=== PATIENT | female | born 1975 | race Caucasian/White ===

== ENCOUNTER → 2017-03-25 | Outpatient (CLI) | payer BC, OTHER ==
[~2017-03-25] MED LIST: ACHYD1T PO; ALBU8.5H2 IH; ASCO500T20 PO; ASPI-586 PO; ATOR40TA PO; CA C1TAB26 PO; CHOL3000 PO; DCS100C PO; DEXL60CA5 PO; DOCU100T7 PO; FAMO-119 PO; IBP800T PO; LEVO5TAB28 PO; LORA10TA7 PO; LRT10T PO; MEGA RED PO; METF-380 PO; MOME17SP9 NS; MONT10TA21 PO; MTF500T PO; ONDA4TAB8 SL; PHEN-452 PO; PNT40TEC PO; PREN1TAB14 PO; PRM25T PO; SCR1T1 PO; SPRINTEC PO; SUCR1ORA5 PO; TOPI50TA37 PO; TRAM-42 PO; VITA150T PO
--- NOTE | 2017-03-25 20:32 | Diagnostic Imaging Report ---
PROCEDURE: US Thyroid. TECHNIQUE: Multiple real-time grayscale images were obtained of the thyroid in various projections. INDICATION: Followup thyroid nodule. COMPARISON: Thyroid ultrasound from 10/06/2013 is reviewed. FINDINGS: The right thyroid lobe is 4.4 x 2.0 x 1.8 cm. The left lobe is 4.8 x 1.7 x 1.7 cm. There are multiple subcentimeter thyroid nodules, the largest is 0.6 x 0.7 x 0.4 cm in the lower aspect of the left lobe with no internal vascularity, in favor of a cystic nodule or a complicated colloid cyst. The findings are similar to 2014 exam. IMPRESSION: Multiple subcentimeter nonspecific thyroid nodules. Dictated by: Dictated on workstation # [id number]
== END ==
LOC: RAD 15:30
PROVIDERS: ATTEND Internal Medicine Endocrinology, Diabetes & Metabolism
DX: E04.2 Nontoxic multinodular goiter (principal)
CPT/HCPCS: 76536

== ENCOUNTER 2017-04-26 17:27 | Day surgery (SDC) | payer BC ==
[~2017-04-26] VITALS: Ht 172.7 cm; Wt 108.0 kg
--- OUTSIDE RECORDS SUMMARY | 2017-04-26 17:35 | XMS REPORT | Continuity of Care Document ---
Author Author [facility] Address Unknown Phone Unavailable Allergies Active Description Code Type Severity Reaction Onset Reported/Identified Relationship to Patient Clinical Status Yes Penicillins [id number] Drug Allergy Moderate RASH 11/10/2007 Yes aspirin [id number] Drug Allergy Mild NAUSEA 11/10/2007 Yes meperidine [id number] Drug Allergy Mild MAKES PT LIGHTH 11/10/2007 Yes morphine [id number] Drug Allergy Mild MAKES PT LIGHT- 11/10/2007 Yes pineapple [id number] Drug Allergy Unknown N/A 01/24/2015 Yes Sulfa (Sulfonamide Antibiotics) [id number] Drug Allergy Unknown RASH, THROAT SW 01/24/2015 Medications There is no data. Problems Date Dx Coded Attending Type Code Diagnosis Diagnosed By 01/21/2011 Ot 530.3 ESOPHAGEAL STRICTURE 01/21/2011 Ot 530.81 ESOPHAGEAL REFLUX 09/28/2011 Ot 614.6 FEM PELVIC PERITON ADH-POST-OP/INF 09/28/2011 Ot 625.9 FEM GENITAL SYMPTOMS NOS 09/28/2011 Ot 626.8 MENSTRUAL DISORDER NEC 12/10/2013 DAVID WATSON MD Ot 455.0 INT HEMORRHOID W/O COMPL 12/10/2013 DAVID WATSON MD Ot 455.3 EXT HEMORRHOID W/O COMPL 12/10/2013 DAVID WATSON MD Ot 530.11 REFLUX ESOPHAGITIS 12/10/2013 DAVID WATSON MD Ot 530.3 ESOPHAGEAL STRICTURE 12/10/2013 DAVID WATSON MD Ot 535.50 UNSP GASTRITIS GASTRODUODENITIS W/O ME 04/25/2014 Ot V76.12 04/25/2014 Ot 298.9 04/25/2014 Ot 379.91 04/25/2014 Ot 780.93 04/25/2014 Ot 787.20 04/25/2014 Ot 723.1 04/25/2014 Ot 787.20 04/25/2014 Ot 285.9 04/25/2014 Ot 625.9 04/25/2014 Ot 626.8 04/25/2014 Ot V72.63 04/25/2014 Ot V74.8 04/25/2014 Ot 719.45 04/25/2014 Ot 719.41 04/25/2014 Ot 719.45 04/25/2014 Ot 723.1 04/25/2014 Ot 719.41 04/25/2014 Ot 719.45 04/25/2014 Ot 721.3 04/25/2014 Ot 722.51 04/25/2014 Ot 723.1 04/25/2014 Ot 726.10 04/25/2014 Ot 726.12 04/25/2014 Ot 729.5 04/25/2014 Ot 782.3 04/25/2014 Ot 272.4 04/25/2014 Ot 397.0 04/25/2014 Ot 401.9 04/25/2014 Ot 424.0 04/25/2014 Ot 786.09 04/25/2014 Ot 786.50 04/25/2014 Ot 272.4 04/25/2014 Ot 401.9 04/25/2014 Ot 424.0 04/25/2014 Ot 786.09 04/25/2014 Ot 786.50 04/25/2014 Ot 241.0 04/25/2014 JUSTIN WELLS Ot 272.4 04/25/2014 JUSTIN WELLS Ot 278.00 04/25/2014 JUSTIN WELLS Ot 401.9 04/25/2014 JUSTIN WELLS Ot 785.1 04/25/2014 DEVON JOSUE Ot 241.1 04/25/2014 WALTER DIAZ, DAVID Ot V72.84 05/13/2014 RAYMON DIAZ, KIRSTIN Sawyer Ot V76.12 10/27/2014 Ot V76.12 10/27/2014 Ot 298.9 10/27/2014 Ot 379.91 10/27/2014 Ot 780.93 10/27/2014 Ot 787.20 10/27/2014 Ot 723.1 10/27/2014 Ot 787.20 10/27/2014 Ot 285.9 10/27/2014 Ot 625.9 10/27/2014 Ot 626.8 10/27/2014 Ot V72.63 10/27/2014 Ot V74.8 10/27/2014 Ot 719.45 10/27/2014 Ot 719.41 10/27/2014 Ot 719.45 10/27/2014 Ot 723.1 10/27/2014 Ot 719.41 10/27/2014 Ot 719.45 10/27/2014 Ot 721.3 10/27/2014 Ot 722.51 10/27/2014 Ot 723.1 10/27/2014 Ot 726.10 10/27/2014 Ot 726.12 10/27/2014 Ot 729.5 10/27/2014 Ot 782.3 10/27/2014 Ot 272.4 10/27/2014 Ot 397.0 10/27/2014 Ot 401.9 10/27/2014 Ot 424.0 10/27/2014 Ot 786.09 10/27/2014 Ot 786.50 10/27/2014 Ot 272.4 10/27/2014 Ot 401.9 10/27/2014 Ot 424.0 10/27/2014 Ot 786.09 10/27/2014 Ot 786.50 10/27/2014 Ot 241.0 10/27/2014 JUSTIN WELLS Ot 272.4 10/27/2014 JUSTIN WELLS Ot 278.00 10/27/2014 JUSTIN WELLS Ot 401.9 10/27/2014 JUSTIN WELLS Ot 785.1 10/27/2014 DEVON JOSUE Ot 241.1 10/27/2014 WALTER DIAZ, DAVID Ot V72.84 10/27/2014 RAYMON DIAZ, KIRSTIN Sawyer Ot V76.12 11/17/2014 CHAPINCITO DIAZ, KRISTEN Garber Ot 241.0 12/20/2014 CHAPINCITO DIAZ, KRISTEN Garber Ot 241.0 01/24/2015 Ot V76.12 01/24/2015 Ot 298.9 01/24/2015 Ot 379.91 01/24/2015 Ot 780.93 01/24/2015 Ot 787.20 01/24/2015 Ot 723.1 01/24/2015 Ot 787.20 01/24/2015 Ot 285.9 01/24/2015 Ot 625.9 01/24/2015 Ot 626.8 01/24/2015 Ot V72.63 01/24/2015 Ot V74.8 01/24/2015 Ot 719.45 01/24/2015 Ot 719.41 01/24/2015 Ot 719.45 01/24/2015 Ot 723.1 01/24/2015 Ot 719.41 01/24/2015 Ot 719.45 01/24/2015 Ot 721.3 01/24/2015 Ot 722.51 01/24/2015 Ot 723.1 01/24/2015 Ot 726.10 01/24/2015 Ot 726.12 01/24/2015 Ot 729.5 01/24/2015 Ot 782.3 01/24/2015 Ot 272.4 01/24/2015 Ot 397.0 01/24/2015 Ot 401.9 01/24/2015 Ot 424.0 01/24/2015 Ot 786.09 01/24/2015 Ot 786.50 01/24/2015 Ot 272.4 01/24/2015 Ot 401.9 01/24/2015 Ot 424.0 01/24/2015 Ot 786.09 01/24/2015 Ot 786.50 01/24/2015 Ot 241.0 01/24/2015 JUSTIN WELLS Ot 272.4 01/24/2015 JUSTIN WELLS Ot 278.00 01/24/2015 JUSTIN WELLS Ot 401.9 01/24/2015 JUSTIN WELLS Ot 785.1 01/24/2015 DEVON JOSUE Ot 241.1 01/24/2015 WALTER DIAZ, DAVID Ot V72.84 01/24/2015 RAYMON DIAZ, KIRSTIN Sawyer Ot V76.12 01/24/2015 CHAPINCITO DIAZ, KRISTEN Garber Ot 241.0 01/24/2015 TRACY CONWAY APRN Ot 787.20 DYSPHAGIA, UNSPECIFIED 01/24/2015 TRACY CONWAY CARAMEL COLORING OPERATOR Ot 787.3 FLATUL/ERUCTAT/GAS PAIN 01/24/2015 Ot V76.12 01/24/2015 Ot 298.9 01/24/2015 Ot 379.91 01/24/2015 Ot 780.93 01/24/2015 Ot 787.20 01/24/2015 Ot 723.1 01/24/2015 Ot 787.20 01/24/2015 Ot 285.9 01/24/2015 Ot 625.9 01/24/2015 Ot 626.8 01/24/2015 Ot V72.63 01/24/2015 Ot V74.8 01/24/2015 Ot 719.45 01/24/2015 Ot 719.41 01/24/2015 Ot 719.45 01/24/2015 Ot 723.1 01/24/2015 Ot 719.41 01/24/2015 Ot 719.45 01/24/2015 Ot 721.3 01/24/2015 Ot 722.51 01/24/2015 Ot 723.1 01/24/2015 Ot 726.10 01/24/2015 Ot 726.12 01/24/2015 Ot 729.5 01/24/2015 Ot 782.3 01/24/2015 Ot 272.4 01/24/2015 Ot 397.0 01/24/2015 Ot 401.9 01/24/2015 Ot 424.0 01/24/2015 Ot 786.09 01/24/2015 Ot 786.50 01/24/2015 Ot 272.4 01/24/2015 Ot 401.9 01/24/2015 Ot 424.0 01/24/2015 Ot 786.09 01/24/2015 Ot 786.50 01/24/2015 Ot 241.0 01/24/2015 JUSTIN WELLS Ot 272.4 01/24/2015 JUSTIN WELLS Ot 278.00 01/24/2015 JUSTIN WELLS Ot 401.9 01/24/2015 JUSTIN WELLS Ot 785.1 01/24/2015 DEVON JOSUE Ot 241.1 01/24/2015 WALTER DIAZ, DAVID Ot V72.84 01/24/2015 RAYMON DIAZ, KIRSTIN Sawyer Ot V76.12 01/24/2015 CHAPINCITO DIAZ, KRISTEN Garber Ot 241.0 01/26/2015 Ot V76.12 01/26/2015 Ot 298.9 01/26/2015 Ot 379.91 01/26/2015 Ot 780.93 01/26/2015 Ot 787.20 01/26/2015 Ot 723.1 01/26/2015 Ot 787.20 01/26/2015 Ot 285.9 01/26/2015 Ot 625.9 01/26/2015 Ot 626.8 01/26/2015 Ot V72.63 01/26/2015 Ot V74.8 01/26/2015 Ot 719.45 01/26/2015 Ot 719.41 01/26/2015 Ot 719.45 01/26/2015 Ot 723.1 01/26/2015 Ot 719.41 01/26/2015 Ot 719.45 01/26/2015 Ot 721.3 01/26/2015 Ot 722.51 01/26/2015 Ot 723.1 01/26/2015 Ot 726.10 01/26/2015 Ot 726.12 01/26/2015 Ot 729.5 01/26/2015 Ot 782.3 01/26/2015 Ot 272.4 01/26/2015 Ot 397.0 01/26/2015 Ot 401.9 01/26/2015 Ot 424.0 01/26/2015 Ot 786.09 01/26/2015 Ot 786.50 01/26/2015 Ot 272.4 01/26/2015 Ot 401.9 01/26/2015 Ot 424.0 01/26/2015 Ot 786.09 01/26/2015 Ot 786.50 01/26/2015 Ot 241.0 01/26/2015 JUSTIN WELLS Ot 272.4 01/26/2015 JUSTIN WELLS Ot 278.00 01/26/2015 JUSTIN WELLS Ot 401.9 01/26/2015 JUSTIN WELLS Ot 785.1 01/26/2015 DEVON JOSUE Ot 241.1 01/26/2015 WALTER DIAZ, DAVID Ot V72.84 01/26/2015 RAYMON DIAZ, KIRSTIN Sawyer Ot V76.12 01/26/2015 CHAPINCITO DIAZ, KRISTEN Garber Ot 241.0 01/27/2015 Ot V76.12 01/27/2015 Ot 298.9 01/27/2015 Ot 379.91 01/27/2015 Ot 780.93 01/27/2015 Ot 787.20 01/27/2015 Ot 723.1 01/27/2015 Ot 787.20 01/27/2015 Ot 285.9 01/27/2015 Ot 625.9 01/27/2015 Ot 626.8 01/27/2015 Ot V72.63 01/27/2015 Ot V74.8 01/27/2015 Ot 719.45 01/27/2015 Ot 719.41 01/27/2015 Ot 719.45 01/27/2015 Ot 723.1 01/27/2015 Ot 719.41 01/27/2015 Ot 719.45 01/27/2015 Ot 721.3 01/27/2015 Ot 722.51 01/27/2015 Ot 723.1 01/27/2015 Ot 726.10 01/27/2015 Ot 726.12 01/27/2015 Ot 729.5 01/27/2015 Ot 782.3 01/27/2015 Ot 272.4 01/27/2015 Ot 397.0 01/27/2015 Ot 401.9 01/27/2015 Ot 424.0 01/27/2015 Ot 786.09 01/27/2015 Ot 786.50 01/27/2015 Ot 272.4 01/27/2015 Ot 401.9 01/27/2015 Ot 424.0 01/27/2015 Ot 786.09 01/27/2015 Ot 786.50 01/27/2015 Ot 241.0 01/27/2015 JUSTIN WELLS Ot 272.4 01/27/2015 JUSTIN WELLS Ot 278.00 01/27/2015 JUSTIN WELLS Ot 401.9 01/27/2015 JUSTIN WELLS Ot 785.1 01/27/2015 DEVON JOSUE Ot 241.1 01/27/2015 WALTER DIAZ, DAVID Ot V72.84 01/27/2015 RAYMON DIAZ, KRISTIN Sawyer Ot V76.12 01/27/2015 CHAPINCITO DIAZ, KRISTEN Garber Ot 241.0 01/27/2015 CHAPINCITO DIAZ, KRISTEN Garber Ot 241.0 03/16/2015 CHAPINCITO DIAZ, KRISTEN Garber Ot 241.0 03/16/2015 CHAPINCITO DIAZ, KRISTEN Garber Ot E04.1 03/28/2015 CHAPINCITO DIAZ, KRISTEN L Ot 241.0 03/28/2015 CHAPINCITO DIAZ, KRISTEN L Ot E04.1 05/10/2015 RAYMON DIAZ, KIRSTIN Sawyer Ot Z12.31 05/24/2015 RAYMON DIAZ, KIRSTIN Sawyer Ot R92.8 06/15/2015 RAYMON DIAZ, KIRSTIN Sawyer Ot R92.8 08/09/2015 RAYMON DIAZ, KIRSTIN Sawyer Ot R92.8 04/14/2016 Ot 298.9 PSYCHOSIS NOS 04/14/2016 Ot 379.91 PAIN IN OR AROUND EYE 04/14/2016 Ot 780.93 MEMORY LOSS 04/14/2016 Ot 787.20 DYSPHAGIA, UNSPECIFIED 04/14/2016 Ot 723.1 CERVICALGIA 04/14/2016 Ot 787.20 DYSPHAGIA, UNSPECIFIED 04/14/2016 Ot 285.9 ANEMIA NOS 04/14/2016 Ot 625.9 FEM GENITAL SYMPTOMS NOS 04/14/2016 Ot 626.8 MENSTRUAL DISORDER NEC 04/14/2016 Ot V72.63 PRE- PROCEDURAL LABORATORY EXAMINATION 04/14/2016 Ot V74.8 SCREEN- BACTERIAL DIS NEC 04/14/2016 Ot 719.45 JOINT PAIN- PELVIS 04/14/2016 Ot 719.41 JOINT PAIN- SHLDER 04/14/2016 Ot 719.45 JOINT PAIN- PELVIS 04/14/2016 Ot 723.1 CERVICALGIA 04/14/2016 Ot 719.41 JOINT PAIN- SHLDER 04/14/2016 Ot 719.45 JOINT PAIN- PELVIS 04/14/2016 Ot 721.3 LUMBOSACRAL SPONDYLOSIS 04/14/2016 Ot 722.51 THORACIC DISC DEGEN 04/14/2016 Ot 723.1 CERVICALGIA 04/14/2016 Ot 726.10 BURSAE TENDONS DIS SHLDER NOS 04/14/2016 Ot 726.12 BICIPITAL TENOSYNOVITIS 04/14/2016 Ot 729.5 PAIN IN LIMB 04/14/2016 Ot 782.3 EDEMA 04/14/2016 Ot 272.4 HYPERLIPIDEMIA NEC/NOS 04/14/2016 Ot 397.0 TRICUSPID VALVE DISEASE 04/14/2016 Ot 401.9 HYPERTENSION NOS 04/14/2016 Ot 424.0 MITRAL VALVE DISORDER 04/14/2016 Ot 786.09 RESPIRATORY ABNORM NEC 04/14/2016 Ot 786.50 CHEST PAIN NOS 04/14/2016 Ot 272.4 HYPERLIPIDEMIA NEC/NOS 04/14/2016 Ot 401.9 HYPERTENSION NOS 04/14/2016 Ot 424.0 MITRAL VALVE DISORDER 04/14/2016 Ot 786.09 RESPIRATORY ABNORM NEC 04/14/2016 Ot 786.50 CHEST PAIN NOS 04/14/2016 Ot 241.0 NONTOX UNINODULAR GOITER 04/14/2016 JUSTIN WELLS K Ot 272.4 HYPERLIPIDEMIA NEC/NOS 04/14/2016 DANA WEAVER JUSTIN K Ot 278.00 OBESITY, NOS 04/14/2016 DANA WEAVER JUSTIN K Ot 401.9 HYPERTENSION NOS 04/14/2016 DANA WEAVER JUSTIN K Ot 785.1 PALPITATIONS 04/14/2016 DEVON JOSUE Ot 241.1 NONTOX MULTINODUL GOITER 04/14/2016 WALTER DIAZ, DAVID Ot V72.84 EXAM PRE-OPERATIVE NOS 04/14/2016 KIRSTIN ENNIS MD Ot V76.12 OTH SCREEN MAMMO-MALIGN NEOPLASM OF STEVE 04/14/2016 CHAPINCITO DAIZ, KRISTEN Garber Ot 241.0 NONTOX UNINODULAR GOITER 04/14/2016 KRISTEN BECKHAM MD Ot E04.1 NONTOXIC SINGLE THYROID NODULE 04/14/2016 KIRSTIN ENNIS MD Ot Z12.31 ENCNTR SCREEN MAMMOGRAM FOR MALIGNANT NE 04/14/2016 KIRSTIN ENNIS MD Ot R92.8 OTH ABN AND INCONCLUSIVE FINDINGS ON DX 04/15/2016 WEI DIAZ, PITO Lai Ot I44.0 ATRIOVENTRICULAR BLOCK, FIRST DEGREE 04/15/2016 WEI DIAZ, PITO Lai Ot K29.70 GASTRITIS, UNSPECIFIED, WITHOUT BLEEDING 04/15/2016 PITO CARVAJAL MD Ot R07.89 OTHER CHEST PAIN 04/15/2016 PITO CARVAJAL MD Ot R10.12 LEFT UPPER QUADRANT PAIN 04/15/2016 PITO CARVAJAL MD Ot R11.0 NAUSEA 04/15/2016 PITO CARVAJAL MD Ot Z79.84 EQUITY STRUCTURER (CURRENT) USE OF ORAL HYPOGLYC 04/15/2016 PITO CARVAJAL MD Ot Z79.899 OTHER EQUITY STRUCTURER (CURRENT) DRUG THERAPY 04/15/2016 Ot 298.9 PSYCHOSIS NOS 04/15/2016 Ot 379.91 PAIN IN OR AROUND EYE 04/15/2016 Ot 780.93 MEMORY LOSS 04/15/2016 Ot 787.20 DYSPHAGIA, UNSPECIFIED 04/15/2016 Ot 723.1 CERVICALGIA 04/15/2016 Ot 787.20 DYSPHAGIA, UNSPECIFIED 04/15/2016 Ot 285.9 ANEMIA NOS 04/15/2016 Ot 625.9 FEM GENITAL SYMPTOMS NOS 04/15/2016 Ot 626.8 MENSTRUAL DISORDER NEC 04/15/2016 Ot V72.63 PRE- PROCEDURAL LABORATORY EXAMINATION 04/15/2016 Ot V74.8 SCREEN- BACTERIAL DIS NEC 04/15/2016 Ot 719.45 JOINT PAIN- PELVIS 04/15/2016 Ot 719.41 JOINT PAIN- SHLDER 04/15/2016 Ot 719.45 JOINT PAIN- PELVIS 04/15/2016 Ot 723.1 CERVICALGIA 04/15/2016 Ot 719.41 JOINT PAIN- SHLDER 04/15/2016 Ot 719.45 JOINT PAIN- PELVIS 04/15/2016 Ot 721.3 LUMBOSACRAL SPONDYLOSIS 04/15/2016 Ot 722.51 THORACIC DISC DEGEN 04/15/2016 Ot 723.1 CERVICALGIA 04/15/2016 Ot 726.10 BURSAE TENDONS DIS SHLDER NOS 04/15/2016 Ot 726.12 BICIPITAL TENOSYNOVITIS 04/15/2016 Ot 729.5 PAIN IN LIMB 04/15/2016 Ot 782.3 EDEMA 04/15/2016 Ot 272.4 HYPERLIPIDEMIA NEC/NOS 04/15/2016 Ot 397.0 TRICUSPID VALVE DISEASE 04/15/2016 Ot 401.9 HYPERTENSION NOS 04/15/2016 Ot 424.0 MITRAL VALVE DISORDER 04/15/2016 Ot 786.09 RESPIRATORY ABNORM NEC 04/15/2016 Ot 786.50 CHEST PAIN NOS 04/15/2016 Ot 272.4 HYPERLIPIDEMIA NEC/NOS 04/15/2016 Ot 401.9 HYPERTENSION NOS 04/15/2016 Ot 424.0 MITRAL VALVE DISORDER 04/15/2016 Ot 786.09 RESPIRATORY ABNORM NEC 04/15/2016 Ot 786.50 CHEST PAIN NOS 04/15/2016 Ot 241.0 NONTOX UNINODULAR GOITER 04/15/2016 JUSTIN WELLS Ot 272.4 HYPERLIPIDEMIA NEC/NOS 04/15/2016 JUSTIN WELLS Ot 278.00 OBESITY, NOS 04/15/2016 JUSTIN WELLS Ot 401.9 HYPERTENSION NOS 04/15/2016 DANA WEAVER JUSTIN K Ot 785.1 PALPITATIONS 04/15/2016 CARLOSWAQASCHRISTIANDEVON LICENSED MASTER SOCIAL WORKER Ot 241.1 NONTOX MULTINODUL GOITER 04/15/2016 WALTER DIAZ, DAVID Ot V72.84 EXAM PRE-OPERATIVE NOS 04/15/2016 RAYMON DIAZ, KIRSTIN Sawyer Ot V76.12 OTH SCREEN MAMMO-MALIGN NEOPLASM OF STEVE 04/15/2016 CHAPINCITO DIAZ, KRISTEN Garber Ot 241.0 NONTOX UNINODULAR GOITER 04/15/2016 CHAPINCITO DIAZ, KRISTEN Garber Ot E04.1 NONTOXIC SINGLE THYROID NODULE 04/15/2016 KIRSTIN ENNIS MD Ot Z12.31 ENCNTR SCREEN MAMMOGRAM FOR MALIGNANT NE 04/15/2016 KIRSTIN ENNIS MD Ot R92.8 OTH ABN AND INCONCLUSIVE FINDINGS ON DX 04/17/2016 FLACO SALDANA DO Ot R16.2 HEPATOMEGALY WITH SPLENOMEGALY, NOT ELSE 04/19/2016 WEI DIAZ, PITO Lai Ot I44.0 ATRIOVENTRICULAR BLOCK, FIRST DEGREE 04/19/2016 WEI DIAZ, PITO Lai Ot K29.70 GASTRITIS, UNSPECIFIED, WITHOUT BLEEDING 04/19/2016 PITO CARVAJAL MD Ot R07.89 OTHER CHEST PAIN 04/19/2016 PITO CARVAJAL MD Ot R10.12 LEFT UPPER QUADRANT PAIN 04/19/2016 PITO CARVAJAL MD Ot R11.0 NAUSEA 04/19/2016 PITO CARVAJAL MD Ot Z79.84 PENITENTIARY (CURRENT) USE OF ORAL HYPOGLYC 04/19/2016 PITO CARVAJAL MD Ot Z79.899 OTHER EQUITY STRUCTURER (CURRENT) DRUG THERAPY 04/23/2016 FLACO SALDANA DO Ot R16.2 HEPATOMEGALY WITH SPLENOMEGALY, NOT ELSE 04/26/2016 KIRSTIN ENNIS MD, Ot Z12.31 ENCNTR SCREEN MAMMOGRAM FOR MALIGNANT NE 04/30/2016 KIRSTIN ENNIS MD, Ot Z12.31 ENCNTR SCREEN MAMMOGRAM FOR MALIGNANT NE 05/01/2016 DAVID WATSON MD Ot R13.10 DYSPHAGIA, UNSPECIFIED 05/01/2016 DAVID WATSON MD Ot Z01.818 ENCOUNTER FOR OTHER PREPROCEDURAL EXAMIN 05/01/2016 DAVID WATSON MD Ot K21.0 GASTRO-ESOPHAGEAL REFLUX DISEASE WITH ES 05/01/2016 DAVID WATSON MD Ot K22.2 ESOPHAGEAL OBSTRUCTION 05/01/2016 DAVID WATSON MD Ot K29.70 GASTRITIS, UNSPECIFIED, WITHOUT BLEEDING 05/01/2016 DAVID WATSON MD Ot K44.9 DIAPHRAGMATIC HERNIA WITHOUT OBSTRUCTION 05/01/2016 FLACO SALDANA DO Ot R16.2 HEPATOMEGALY WITH SPLENOMEGALY, NOT ELSE 05/02/2016 KIRSTIN ENNIS MD, Ot Z12.31 ENCNTR SCREEN MAMMOGRAM FOR MALIGNANT NE 05/02/2016 KIRSTIN ENNIS MD, Ot Z12.31 ENCNTR SCREEN MAMMOGRAM FOR MALIGNANT NE 05/03/2016 DAVID WATSON MD Ot K21.0 GASTRO-ESOPHAGEAL REFLUX DISEASE WITH ES 05/03/2016 DAVID WATSON MD Ot K22.2 ESOPHAGEAL OBSTRUCTION 05/03/2016 DAVID WATSON MD Ot K29.70 GASTRITIS, UNSPECIFIED, WITHOUT BLEEDING 05/03/2016 DAVID WATSON MD Ot K44.9 DIAPHRAGMATIC HERNIA WITHOUT OBSTRUCTION 05/15/2016 KIRSTIN ENNIS MD, Ot Z12.31 ENCNTR SCREEN MAMMOGRAM FOR MALIGNANT NE 05/28/2016 FLACO SALDANA DO Ot R16.2 HEPATOMEGALY WITH SPLENOMEGALY, NOT ELSE 03/21/2017 Ot 719.45 JOINT PAIN- PELVIS 03/21/2017 Ot 719.41 JOINT PAIN- SHLDER 03/21/2017 Ot 719.45 JOINT PAIN- PELVIS 03/21/2017 Ot 723.1 CERVICALGIA 03/21/2017 Ot 719.41 JOINT PAIN- SHLDER 03/21/2017 Ot 719.45 JOINT PAIN- PELVIS 03/21/2017 Ot 721.3 LUMBOSACRAL SPONDYLOSIS 03/21/2017 Ot 722.51 THORACIC DISC DEGEN 03/21/2017 Ot 723.1 CERVICALGIA 03/21/2017 Ot 726.10 BURSAE TENDONS DIS SHLDER NOS 03/21/2017 Ot 726.12 BICIPITAL TENOSYNOVITIS 03/21/2017 Ot 729.5 PAIN IN LIMB 03/21/2017 Ot 782.3 EDEMA 03/21/2017 Ot 272.4 HYPERLIPIDEMIA NEC/NOS 03/21/2017 Ot 397.0 TRICUSPID VALVE DISEASE 03/21/2017 Ot 401.9 HYPERTENSION NOS 03/21/2017 Ot 424.0 MITRAL VALVE DISORDER 03/21/2017 Ot 786.09 RESPIRATORY ABNORM NEC 03/21/2017 Ot 786.50 CHEST PAIN NOS 03/21/2017 Ot 272.4 HYPERLIPIDEMIA NEC/NOS 03/21/2017 Ot 401.9 HYPERTENSION NOS 03/21/2017 Ot 424.0 MITRAL VALVE DISORDER 03/21/2017 Ot 786.09 RESPIRATORY ABNORM NEC 03/21/2017 Ot 786.50 CHEST PAIN NOS 03/21/2017 Ot 241.0 NONTOX UNINODULAR GOITER 03/21/2017 JUSTIN WELLS Ot 272.4 HYPERLIPIDEMIA NEC/NOS 03/21/2017 JUSTIN WELLS Ot 278.00 OBESITY, NOS 03/21/2017 JUSTIN WELLS Ot 401.9 HYPERTENSION NOS 03/21/2017 JUSTIN WELLS Ot 785.1 PALPITATIONS 03/21/2017 DEVON JOSUE Ot 241.1 NONTOX MULTINODUL GOITER 03/21/2017 WALTER DIAZ, DAVID Ot V72.84 EXAM PRE-OPERATIVE NOS 03/21/2017 RAYMON DIAZ, KIRSTIN Sawyer Ot V76.12 OTH SCREEN MAMMO-MALIGN NEOPLASM OF STEVE 03/21/2017 CHAPINCITO DIAZ, KRISTEN Garber Ot 241.0 NONTOX UNINODULAR GOITER 03/21/2017 KRISTEN BECKHAM MD Ot E04.1 NONTOXIC SINGLE THYROID NODULE 03/21/2017 KIRSTIN ENNIS MD Ot Z12.31 ENCNTR SCREEN MAMMOGRAM FOR MALIGNANT NE 03/21/2017 KIRSTIN ENNIS MD Ot R92.8 OTH ABN AND INCONCLUSIVE FINDINGS ON DX 03/21/2017 KIRSTIN ENNIS MD, Ot Z12.31 ENCNTR SCREEN MAMMOGRAM FOR MALIGNANT NE 03/21/2017 SALDANA DO, FLACO L Ot R16.2 HEPATOMEGALY WITH SPLENOMEGALY, NOT ELSE 03/21/2017 WALTER DIAZ, DAVID Ot R13.10 DYSPHAGIA, UNSPECIFIED 03/21/2017 DAVID WATSON MD Ot Z01.818 ENCOUNTER FOR OTHER PREPROCEDURAL EXAMIN 03/25/2017 Ot 719.45 JOINT PAIN- PELVIS 03/25/2017 Ot 719.41 JOINT PAIN- SHLDER 03/25/2017 Ot 719.45 JOINT PAIN- PELVIS 03/25/2017 Ot 723.1 CERVICALGIA 03/25/2017 Ot 719.41 JOINT PAIN- SHLDER 03/25/2017 Ot 719.45 JOINT PAIN- PELVIS 03/25/2017 Ot 721.3 LUMBOSACRAL SPONDYLOSIS 03/25/2017 Ot 722.51 THORACIC DISC DEGEN 03/25/2017 Ot 723.1 CERVICALGIA 03/25/2017 Ot 726.10 BURSAE TENDONS DIS SHLDER NOS 03/25/2017 Ot 726.12 BICIPITAL TENOSYNOVITIS 03/25/2017 Ot 729.5 PAIN IN LIMB 03/25/2017 Ot 782.3 EDEMA 03/25/2017 Ot 272.4 HYPERLIPIDEMIA NEC/NOS 03/25/2017 Ot 397.0 TRICUSPID VALVE DISEASE 03/25/2017 Ot 401.9 HYPERTENSION NOS 03/25/2017 Ot 424.0 MITRAL VALVE DISORDER 03/25/2017 Ot 786.09 RESPIRATORY ABNORM NEC 03/25/2017 Ot 786.50 CHEST PAIN NOS 03/25/2017 Ot 272.4 HYPERLIPIDEMIA NEC/NOS 03/25/2017 Ot 401.9 HYPERTENSION NOS 03/25/2017 Ot 424.0 MITRAL VALVE DISORDER 03/25/2017 Ot 786.09 RESPIRATORY ABNORM NEC 03/25/2017 Ot 786.50 CHEST PAIN NOS 03/25/2017 Ot 241.0 NONTOX UNINODULAR GOITER 03/25/2017 JUSTIN WELLS Ot 272.4 HYPERLIPIDEMIA NEC/NOS 03/25/2017 JUSTIN WELLS Ot 278.00 OBESITY, NOS 03/25/2017 JUSTIN WELLS Ot 401.9 HYPERTENSION NOS 03/25/2017 JUSTIN WELLS Ot 785.1 PALPITATIONS 03/25/2017 [place] CR Miky MATHIS Ot 241.1 NONTOX MULTINODUL GOITER 03/25/2017 DAVID WATSON MD Ot V72.84 EXAM PRE-OPERATIVE NOS 03/25/2017 KIRSTIN ENNIS MD, Ot V76.12 OTH SCREEN MAMMO-MALIGN NEOPLASM OF STEVE 03/25/2017 KRISTEN BECKHAM MD Ot 241.0 NONTOX UNINODULAR GOITER 03/25/2017 KRISTEN BECKHAM MD Ot E04.1 NONTOXIC SINGLE THYROID NODULE 03/25/2017 KIRSTIN ENNIS MD, Ot Z12.31 ENCNTR SCREEN MAMMOGRAM FOR MALIGNANT NE 03/25/2017 KIRSTIN ENNIS MD, Ot R92.8 OTH ABN AND INCONCLUSIVE FINDINGS ON DX 03/25/2017 KIRSTIN ENNIS MD, Ot Z12.31 ENCNTR SCREEN MAMMOGRAM FOR MALIGNANT NE 03/25/2017 FLACO SALDANA DO Ot R16.2 HEPATOMEGALY WITH SPLENOMEGALY, NOT ELSE 03/25/2017 DAVID WATSON MD, Ot R13.10 DYSPHAGIA, UNSPECIFIED 03/25/2017 DAVID WATSON MD, Ot Z01.818 ENCOUNTER FOR OTHER PREPROCEDURAL EXAMIN 04/07/2017 FLACO SALDANA DO, Ot E04.2 NONTOXIC MULTINODULAR GOITER Procedures There is no data. Results Test Result Range Complete blood count (CBC) with automated white blood cell (WBC) differential - 04/14/16 22:09 Blood leukocytes automated count (number/volume) 10.1 10*3/uL 4.3-11.0 Blood erythrocytes automated count (number/volume) 5.28 10*6/uL 4.35-5.85 Venous blood hemoglobin measurement (mass/volume) 14.8 g/dL 11.5-16.0 Blood hematocrit (volume fraction) 44 % 35-52 Automated erythrocyte mean corpuscular volume 82 [foz_us] 80-99 Automated erythrocyte mean corpuscular hemoglobin (mass per erythrocyte) 28 pg 25-34 Automated erythrocyte mean corpuscular hemoglobin concentration measurement ( mass/volume) 34 g/dL 32-36 Automated erythrocyte distribution width ratio 13.7 % 10.0-14.5 Automated blood platelet count (count/volume) 304 10*3/uL 130-400 Automated blood platelet mean volume measurement 9.3 [foz_us] 7.4-10.4 Automated blood neutrophils/100 leukocytes 55 % 42-75 Automated blood lymphocytes/100 leukocytes 34 % 12-44 Blood monocytes/100 leukocytes 6 % 0-12 Automated blood eosinophils/100 leukocytes 5 % 0-10 Automated blood basophils/100 leukocytes 1 % 0-10 Blood neutrophils automated count (number/volume) 5.6 10*3 1.8-7.8 Blood lymphocytes automated count (number/volume) 3.4 10*3 1.0-4.0 Blood monocytes automated count (number/volume) 0.6 10*3 0.0-1.0 Automated eosinophil count 0.5 10*3/uL 0.0-0.3 Automated blood basophil count (count/volume) 0.1 10*3/uL 0.0-0.1 Serum or plasma troponin i.cardiac measurement (mass/volume) - 04/14/16 22:09 Serum or plasma troponin i.cardiac measurement (mass/volume) < ng/ mL <0.30 Comprehensive metabolic panel - 04/14/16 22:09 Serum or plasma sodium measurement (moles/volume) 143 mmol/L 135-145 Serum or plasma potassium measurement (moles/volume) 3.5 mmol/L 3.6-5.0 Serum or plasma chloride measurement (moles/volume) 110 mmol/L 98-107 Carbon dioxide 22 mmol/L 21-32 Serum or plasma anion gap determination (moles/volume) 11 mmol/L 5-14 Serum or plasma urea nitrogen measurement (mass/volume) 13 mg/dL 7-18 Serum or plasma creatinine measurement (mass/volume) 0.81 mg/dL 0.60-1.30 Serum or plasma urea nitrogen/creatinine mass ratio 16 NRG Serum or plasma creatinine measurement with calculation of estimated glomerular filtration rate > NRG Serum or plasma glucose measurement (mass/volume) 102 mg/dL 70-105 Serum or plasma calcium measurement (mass/volume) 9.2 mg/dL 8.5-10.1 Serum or plasma total bilirubin measurement (mass/volume) 0.5 mg/dL 0.1-1.0 Serum or plasma alkaline phosphatase measurement (enzymatic activity/volume) 99 U/L 40-136 Serum or plasma aspartate aminotransferase measurement (enzymatic activity/ volume) 14 U/L 5-34 Serum or plasma alanine aminotransferase measurement (enzymatic activity/volume ) 16 U/L 0-55 Serum or plasma protein measurement (mass/volume) 6.8 g/dL 6.4-8.2 Serum or plasma albumin measurement (mass/volume) 4.4 g/dL 3.2-4.5 Lipase - 04/14/16 22:09 Lipase 26 U/L 8-78 Serum or plasma C reactive protein measurement (mass/volume) - 04/14/16 22:09 Serum or plasma C reactive protein measurement (mass/volume) 0.37 mg /dL 0.00-0.50 Complete urinalysis with reflex to culture - 04/14/16 22:30 Urine color determination YELLOW NRG Urine clarity determination SLIGHTLY CLOUDY NRG Urine pH measurement by test strip 5 5-9 Specific gravity of urine by test strip 1.025 1.016- 1.022 Urine protein assay by test strip, semi-quantitative NEGATIVE NEGATIVE Urine glucose detection by automated test strip NEGATIVE NEGATIVE Erythrocytes detection in urine sediment by light microscopy NEGATIVE NEGATIVE Urine ketones detection by automated test strip NEGATIVE NEGATIVE Urine nitrite detection by test strip NEGATIVE NEGATIVE Urine total bilirubin detection by test strip NEGATIVE NEGATIVE Urine urobilinogen measurement by automated test strip (mass/volume) 1 mg/dL NORMAL Urine leukocyte esterase detection by dipstick NEGATIVE NEGATIVE Automated urine sediment erythrocyte count by microscopy (number/high power field) NONE NRG Automated urine sediment leukocyte count by microscopy (number/high power field ) RARE NRG Bacteria detection in urine sediment by light microscopy FEW NRG Squamous epithelial cells detection in urine sediment by light microscopy 5-10 NRG Crystals detection in urine sediment by light microscopy NONE NRG Casts detection in urine sediment by light microscopy NONE NRG Mucus detection in urine sediment by light microscopy MODERATE NRG Complete urinalysis with reflex to culture YES NRG Bacterial urine culture - 04/14/16 22:30 URINE CULTURE RESULTS <10,000/ML NRG Encounters ACCT No. Visit Date/Time Discharge Status Pt. Type Provider Facility Loc./Unit Complaint [id number] 03/30/2010 15:47:00 03/30/2010 23:59:59 CLS Outpatient NAVEED MACK DMD [id number] 03/25/2017 15:30:00 03/25/2017 23:59:59 CLS Outpatient FLACO SALDANA DO [facility] RAD E04.2 [id number] 05/01/2016 10:11:00 05/01/2016 13:45:00 DIS Outpatient DAVID WATSON MD [facility] SDC DYSPHAGIA [id number] 04/30/2016 10:32:00 04/30/2016 23:59:59 CLS Outpatient DAVID WATSON MD [facility] PREOP DYSPHAGIA [id number] 04/26/2016 07:52:00 04/26/2016 23:59:59 CLS Outpatient KIRSTIN ENNIS MD [facility] RAD SCREENING [id number] 04/16/2016 08:04:00 04/16/2016 23:59:59 CLS Outpatient FLACO SALDANA DO [facility] RAD ABD PAIN [id number] 04/14/2016 21:39:00 04/15/2016 00:28:00 DIS Emergency PITO CARVAJAL MD [facility] ER SIDE PAIN [id number] 05/11/2015 08:12:00 05/11/2015 23:59:59 CLS Outpatient KIRSTIN ENNIS MD [facility] RAD ABNORMAL MAMMO [id number] 04/25/2015 08:35:00 04/25/2015 23:59:59 CLS Outpatient KIRSTIN ENNIS MD [facility] RAD ROUTINE MAMMOGRAM SCREENING [id number] 01/24/2015 14:10:00 01/24/2015 16:13:00 DIS Emergency TRACY CONWAY APRN [facility] ER ABD SWELLING/CHOKED ON BILE [id number] 11/15/2014 11:22:00 11/15/2014 23:59:59 CLS Outpatient KRISTEN BECKHAM MD [facility] CARD THRYOID FULLNESS GOITER NODULE [id number] 04/25/2014 11:12:00 04/25/2014 23:59:59 CLS Outpatient KIRSTIN ENNIS MD [facility] RAD ROUTINE [id number] 12/10/2013 10:43:00 12/10/2013 14:00:00 DIS Outpatient DAVID WATSON MD [facility] SDC DYSPHAGIA;ABDOMINAL PAIN [id number] 12/03/2013 15:02:00 12/03/2013 23:59:59 CLS Outpatient DAVID WATSON MD 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 RAD HX THY NODULE [id number] 10/06/2013 08:57:00 10/06/2013 23:59:59 CLS Outpatient JUSTIN WELLS [facility] CARD HTN,HLP, PALPITATIONS [id number] 04/25/2014 11:11:00 Document Registration [id number] 02/24/2012 12:14:00 Document Registration [id number] 02/19/2012 11:49:00 Document Registration [id number] 02/13/2012 12:56:00 Document Registration [id number] 02/12/2012 11:16:00 Document Registration [id number] 02/06/2012 12:42:00 Document Registration [id number] 02/04/2012 12:54:00 Document Registration [id number] 01/28/2012 12:59:00 Document Registration [id number] 09/27/2011 05:48:00 Document Registration [id number] 09/23/2011 08:21:00 Document Registration [id number] 02/13/2011 12:49:00 Document Registration [id number] 01/21/2011 10:58:00 Document Registration [id number] 12/19/2010 07:39:00 Document Registration [id number] 11/13/2010 13:21:00 Document Registration [id number] 07/25/2010 15:16:00 Document Registration
[2017-04-26] MEDS ORDERED: NS IV 1000 ML 1,000 ML IV ONE (17:41)
[2017-04-26] MEDS ORDERED: DIAZEPAM INJ 10 MG/2 ML (VALIUM) SYR IV STA (17:41)
[2017-04-26] MEDS ORDERED: ONDANSETRON 4 MG/2 ML (SDV) Z0FRAN IVP ONE ×2 (17:45→19:45)
[2017-04-26] MEDS ORDERED: GLUCAGON EMERGENCY 1 MG/KIT IV ONE (18:00)
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
[2017-04-26 18:17] LABS: BASOPHILS # (AUTO) 0.1 10^3/uL (0.0-0.1); BASOPHILS % (AUTO) 1 % (0-10); EOSINOPHILS # (AUTO) 0.3 10^3/uL (0.0-0.3); EOSINOPHILS % (AUTO) 3 % (0-10); LYMPHOCYTES # (AUTO) 2.1 X 10^3 (1.0-4.0); LYMPHOCYTES % (AUTO) 20 % (12-44); MEAN CORPUSCULAR HEMOGLOBIN 28 PG (25-34); MEAN CORPUSCULAR HGB CONC 34 G/DL (32-36); MEAN CORPUSCULAR VOLUME 82 FL (80-99); MEAN PLATELET VOLUME 9.4 FL (7.4-10.4); MONOCYTES # (AUTO) 0.5 X 10^3 (0.0-1.0); MONOCYTES % (AUTO) 5 % (0-12); NEUTROPHILS # (AUTO) 7.6 X 10^3 (1.8-7.8); NEUTROPHILS % (AUTO) 72 % (42-75); PLATELET COUNT 275 10^3/uL (130-400); RED BLOOD COUNT 5.26 10^6/uL (4.35-5.85); RED CELL DISTRIBUTION WIDTH 13.7 % (10.0-14.5); WHITE BLOOD COUNT 10.7 10^3/uL (4.3-11.0)
[2017-04-26 18:38] LABS: ALANINE AMINOTRANSFERASE 14 U/L (0-55); ALBUMIN 4.2 GM/DL (3.2-4.5); ANION GAP 11 MMOL/L (5-14); ASPARTATE AMINO TRANSFERASE 13 U/L (5-34); BILIRUBIN,TOTAL 0.4 MG/DL (0.1-1.0); BLOOD UREA NITROGEN 14 MG/DL (7-18); BUN/CREATININE RATIO 18; CALCIUM 9.1 MG/DL (8.5-10.1); CARBON DIOXIDE 21 MMOL/L (21-32); CHLORIDE 110 MMOL/L (98-107); GFR ESTIMATED > 60; GLUCOSE 110 MG/DL (70-105); LIPASE 22 U/L (8-78); POTASSIUM 3.8 MMOL/L (3.6-5.0); SODIUM 142 MMOL/L (135-145); TOTAL PROTEIN 7.4 GM/DL (6.4-8.2)
--- NOTE | 2017-04-26 19:01 | Diagnostic Imaging Report ---
INDICATION: Cough, abdominal pain, choking, history of esophageal stricture COMPARISON: 04/14/2016 FINDINGS: Acute abdominal series demonstrates normal chest. There is no free air under the diaphragm. Cholecystectomy clips are present. Bowel gas pattern is normal. No significant constipation. The osseous structures normal. IMPRESSION: Negative acute abdominal series. Dictated by: Dictated on workstation # [id number]
[2017-04-26] MEDS ORDERED: KETOROLAC 30 MG/ML VIAL IVP STA (19:39)
--- OUTSIDE RECORDS SUMMARY | 2017-04-26 20:02 | XMS REPORT | Continuity of Care Document ---
Author Author [facility] Address Unknown Phone Unavailable Allergies Active Description Code Type Severity Reaction Onset Reported/Identified Relationship to Patient Clinical Status Yes Penicillins [id number] Drug Allergy Moderate RASH 11/10/2007 Yes aspirin [id number] Drug Allergy Mild NAUSEA 11/10/2007 Yes meperidine [id number] Drug Allergy Mild MAKES PT LIGHTH 11/10/2007 Yes morphine [id number] Drug Allergy Mild MAKES PT LIGHT- 11/10/2007 Yes pineapple [id number] Drug Allergy Unknown N/A 01/24/2015 Yes Sulfa (Sulfonamide Antibiotics) [id number] Drug Allergy Unknown RASH, THROAT SW 01/24/2015 [...] Ot 787.20 DYSPHAGIA, UNSPECIFIED 01/24/2015 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 Ot 787.3 FLATUL/ERUCTAT/GAS PAIN 01/24/2015 Ot V76.12 [...] DIAZ, DAVID Ot V72.84 01/27/2015 RAYMON DIAZ, KIRSTIN Sawyer Ot V76.12 01/27/2015 CHAPINCITO DIAZ, KRISTEN [...] SCREEN MAMMO-MALIGN NEOPLASM OF STEVE 04/14/2016 CHAPINCITO DIAZ, KRISTEN Garber Ot 241.0 NONTOX [...] NAUSEA 04/15/2016 PITO CARVAJAL MD Ot 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89 OTHER CHEST PAIN 04/19/2016 PITO CARVAJAL MD Ot R10.12 LEFT UPPER QUADRANT PAIN 04/19/2016 PITO CARVAJAL MD Ot R11.0 NAUSEA 04/19/2016 PITO CARVAJAL MD Ot Z79.84 FPC (CURRENT) USE OF ORAL HYPOGLYC 04/19/2016 PITO CARVAJAL MD Ot Z79.899 OTHER TRAFFIC SIGN ERECTION SUPERVISOR (CURRENT) DRUG THERAPY 04/23/2016 FLACO SALDANA DO [...] JUSTIN WELLS Ot 278.00 OBESITY, NOS 03/21/2017 JUSTNI WELLS Ot 401.9 HYPERTENSION NOS 03/21/2017 JUSTIN [...] 04/14/16 22:30 URINE CULTURE RESULTS <10,000/ML NRG Complete blood count (CBC) with automated white blood cell (WBC) differential - 04/26/17 18:10 Blood leukocytes automated count (number/volume) 10.7 10*3/uL 4.3-11.0 Blood erythrocytes automated count (number/volume) 5.26 10*6/uL 4.35-5.85 Venous blood hemoglobin measurement (mass/volume) 14.9 g/dL 11.5-16.0 Blood hematocrit (volume fraction) 43 % 35-52 Automated erythrocyte mean corpuscular volume 82 [foz_us] 80-99 Automated erythrocyte mean corpuscular hemoglobin (mass per erythrocyte) 28 pg 25-34 Automated erythrocyte mean corpuscular hemoglobin concentration measurement ( mass/volume) 34 g/dL 32-36 Automated erythrocyte distribution width ratio 13.7 % 10.0-14.5 Automated blood platelet count (count/volume) 275 10*3/uL 130-400 Automated blood platelet mean volume measurement 9.4 [foz_us] 7.4-10.4 Automated blood neutrophils/100 leukocytes 72 % 42-75 Automated blood lymphocytes/100 leukocytes 20 % 12-44 Blood monocytes/100 leukocytes 5 % 0-12 Automated blood eosinophils/100 leukocytes 3 % 0-10 Automated blood basophils/100 leukocytes 1 % 0-10 Blood neutrophils automated count (number/volume) 7.6 10*3 1.8-7.8 Blood lymphocytes automated count (number/volume) 2.1 10*3 1.0-4.0 Blood monocytes automated count (number/volume) 0.5 10*3 0.0-1.0 Automated eosinophil count 0.3 10*3/uL 0.0-0.3 Automated blood basophil count (count/volume) 0.1 10*3/uL 0.0-0.1 Comprehensive metabolic panel - 04/26/17 18:10 Serum or plasma sodium measurement (moles/volume) 142 mmol/L 135-145 Serum or plasma potassium measurement (moles/volume) 3.8 mmol/L 3.6-5.0 Serum or plasma chloride measurement (moles/volume) 110 mmol/L 98-107 Carbon dioxide 21 mmol/L 21-32 Serum or plasma anion gap determination (moles/volume) 11 mmol/L 5-14 Serum or plasma urea nitrogen measurement (mass/volume) 14 mg/dL 7-18 Serum or plasma creatinine measurement (mass/volume) 0.80 mg/dL 0.60-1.30 Serum or plasma urea nitrogen/creatinine mass ratio 18 NRG Serum or plasma creatinine measurement with calculation of estimated glomerular filtration rate > NRG Serum or plasma glucose measurement (mass/volume) 110 mg/dL 70-105 Serum or plasma calcium measurement (mass/volume) 9.1 mg/dL 8.5-10.1 Serum or plasma total bilirubin measurement (mass/volume) 0.4 mg/dL 0.1-1.0 Serum or plasma alkaline phosphatase measurement (enzymatic activity/volume) 85 U/L 40-136 Serum or plasma aspartate aminotransferase measurement (enzymatic activity/ volume) 13 U/L 5-34 Serum or plasma alanine aminotransferase measurement (enzymatic activity/volume ) 14 U/L 0-55 Serum or plasma protein measurement (mass/volume) 7.4 g/dL 6.4-8.2 Serum or plasma albumin measurement (mass/volume) 4.2 g/dL 3.2-4.5 Lipase - 04/26/17 18:10 Lipase 22 U/L 8-78 Encounters ACCT No. Visit Date/Time Discharge Status Pt. Type Provider Facility Loc./Unit Complaint [id number] 03/30/2010 15:47:00 03/30/2010 23:59:59 CLS Outpatient FREDERICK ALARCON, NAVEED P [id number] 03/25/2017 15:30:00 03/25/2017 23:59:59 CLS Outpatient FLACO SALDANA DO [facility] RAD E04.2 [id number] 05/01/2016 10:11:00 05/01/2016 13:45:00 DIS Outpatient DAVID WATSON MD [facility] SDC DYSPHAGIA [id number] 04/30/2016 10:32:00 04/30/2016 23:59:59 CLS Outpatient DAVID WATSON MD [facility] PREOP DYSPHAGIA [id number] 04/26/2016 07:52:00 04/26/2016 23:59:59 CLS Outpatient KIRSTIN ENNIS MD [facility] RAD SCREENING [id number] 04/16/2016 08:04:00 04/16/2016 23:59:59 CLS Outpatient FLACO SALDANA DO [facility] RAD ABD PAIN [id number] 04/14/2016 21:39:00 04/15/2016 00:28:00 DIS Emergency PITO CARVAJAL MD [facility] ER SIDE PAIN [id number] 05/11/2015 08:12:00 05/11/2015 23:59:59 CLS Outpatient KIRSTIN ENNIS MD [facility] RAD ABNORMAL MAMMO [id number] 04/25/2015 08:35:00 04/25/2015 23:59:59 CLS Outpatient KIRSTIN ENNIS MD [facility] RAD ROUTINE MAMMOGRAM SCREENING [id number] 01/24/2015 14:10:00 01/24/2015 16:13:00 DIS Emergency TRACY CONWAY APRN [facility] ER ABD SWELLING/CHOKED ON BILE [id number] 11/15/2014 11:22:00 11/15/2014 23:59:59 CLS Outpatient KRISTEN BECKHAM MD [facility] CARD THRYOID FULLNESS GOITER NODULE [id number] 04/25/2014 11:12:00 04/25/2014 23:59:59 CLS Outpatient KIRSTIN ENNIS MD [facility] RAD ROUTINE [id number] 12/10/2013 10:43:00 12/10/2013 14:00:00 DIS Outpatient DAVID WATSON MD [facility] SDC DYSPHAGIA;ABDOMINAL PAIN [id number] 12/03/2013 15:02:00 12/03/2013 23:59:59 CLS Outpatient DAVID WATSON MD [facility] PREOP DYSPHAGIA;ABDOMINAL PAIN [id number] 10/06/2013 12:06:00 10/06/2013 23:59:59 CLS Outpatient DEVON JOSUE [facility] RAD HX THY NODULE [id number] 10/06/2013 08:57:00 10/06/2013 23:59:59 CLS Outpatient JUSTIN WELLS [facility] CARD HTN,HLP, PALPITATIONS [id number] 04/26/2017 18:18:00 Document Registration [id number] 04/25/2014 11:11:00 Document Registration [id number] 02/24/2012 12:14:00 Document Registration [id number] 02/19/2012 11:49:00 Document Registration [id number] 02/13/2012 12:56:00 Document Registration [id number] 02/12/2012 11:16:00 Document Registration [id number] 02/06/2012 12:42:00 Document Registration [id number] 02/04/2012 12:54:00 Document Registration [id number] 01/28/2012 12:59:00 Document Registration [id number] 09/27/2011 05:48:00 Document Registration [id number] 09/23/2011 08:21:00 Document Registration [id number] 02/13/2011 12:49:00 Document Registration [id number] 01/21/2011 10:58:00 Document Registration [id number] 12/19/2010 07:39:00 Document Registration [id number] 11/13/2010 13:21:00 Document Registration [id number] 07/25/2010 15:16:00 Document Registration
[2017-04-26] MEDS ORDERED: PROMETHAZINE INJ 25 MG/ML (PHENERGAN) AMP IV PRN (20:45)
[2017-04-26] MEDS ORDERED: KETOROLAC 30 MG/ML VIAL IV PRN (20:45)
[2017-04-26] MEDS ORDERED: ONDANSETRON 4 MG/2 ML (SDV) Z0FRAN IV PRN (20:45)
[2017-04-26] MEDS ORDERED: CATHETER FLUSH 10 ML SYR IV PRN (20:45)
[2017-04-26] MEDS ORDERED: HYDROcodone/APAP 5 MG/325 MG (LORTAB) TAB PO PRN (20:45)
[2017-04-26] MEDS ORDERED: fentaNYL INJECTION 100 MCG/2 ML AMP IV PRN (20:45)
[2017-04-26] MEDS ORDERED: LORazepam INJ 2 MG/ML (ATIVAN) VIAL IV PRN (20:45)
--- NOTE | 2017-04-26 20:47 | Diagnostic Imaging Report ---
PROCEDURE: CT abdomen and pelvis with contrast. TECHNIQUE: Multiple contiguous axial images were obtained through the abdomen and pelvis after administration of intravenous contrast. INDICATION: Left flank pain, left lower quadrant abdominal pain COMPARISON: 04/14/2016 FINDINGS: Lung bases are clear. The gallbladder is surgically absent. Solid organs, vascular structures and bowel are unremarkable. There is no free air or free fluid. No inflammatory process is seen. No significant constipation is identified. Distal ureters and urinary bladder are grossly normal. The uterus is surgically absent. IMPRESSION: 1. Surgically absent uterus and gallbladder. 2. Not mentioned above, probable postoperative changes involving a loop of small bowel in the right lower quadrant. 3. No inflammatory process, free air or free fluid. Dictated by: Dictated on workstation # [id number]
[2017-04-26] MEDS: NS IV 1000 ML 1,000 ML IV SCH (21:22)
[2017-04-26] MEDS: CATHETER FLUSH 10 ML SYR IV SCH (21:22)
[2017-04-26] MEDS: PANTOPRAZOLE 40 MG/10 ML (PROTONIX) VIAL IV SCH (21:22)
[2017-04-27] VITALS: BP 103/67
[2017-04-27 04:00] VITALS: BP 111/67
[2017-04-27] MEDS: NS IV 1000 ML 1,000 ML IV SCH ×2 (04:05→08:35)
[2017-04-27 06:04] LABS: BASOPHILS % (AUTO) 0 % (0-10); EOSINOPHILS # (AUTO) 0.4 10^3/uL (0.0-0.3); EOSINOPHILS % (AUTO) 4 % (0-10); LYMPHOCYTES # (AUTO) 2.9 X 10^3 (1.0-4.0); LYMPHOCYTES % (AUTO) 29 % (12-44); MEAN CORPUSCULAR HEMOGLOBIN 28 PG (25-34); MEAN CORPUSCULAR HGB CONC 34 G/DL (32-36); MEAN CORPUSCULAR VOLUME 84 FL (80-99); MEAN PLATELET VOLUME 9.4 FL (7.4-10.4); MONOCYTES # (AUTO) 0.6 X 10^3 (0.0-1.0); MONOCYTES % (AUTO) 6 % (0-12); NEUTROPHILS # (AUTO) 6.1 X 10^3 (1.8-7.8); NEUTROPHILS % (AUTO) 61 % (42-75); PLATELET COUNT 237 10^3/uL (130-400); RED BLOOD COUNT 4.61 10^6/uL (4.35-5.85); RED CELL DISTRIBUTION WIDTH 13.7 % (10.0-14.5)
[2017-04-27 06:20] LABS: ALANINE AMINOTRANSFERASE 12 U/L (0-55); ALBUMIN 3.3 GM/DL (3.2-4.5); ANION GAP 9 MMOL/L (5-14); ASPARTATE AMINO TRANSFERASE 10 U/L (5-34); BILIRUBIN,TOTAL 0.8 MG/DL (0.1-1.0); BLOOD UREA NITROGEN 12 MG/DL (7-18); BUN/CREATININE RATIO 18; CALCIUM 7.7 MG/DL (8.5-10.1); CARBON DIOXIDE 18 MMOL/L (21-32); CHLORIDE 113 MMOL/L (98-107); CREATININE SERUM 0.66 MG/DL (0.60-1.30); GFR ESTIMATED > 60; GLUCOSE 103 MG/DL (70-105); POTASSIUM 3.7 MMOL/L (3.6-5.0); SODIUM 140 MMOL/L (135-145); TOTAL PROTEIN 5.4 GM/DL (6.4-8.2)
[2017-04-27] MEDS: CATHETER FLUSH 10 ML SYR IV SCH (08:15)
[2017-04-27 08:30] VITALS: BP 103/71
[2017-04-27] MEDS ORDERED: INFLUENZA TRIvalent 2017-2018 0.5 ML/45 MCG SYR IM ONE (08:30)
[2017-04-27] MEDS: PANTOPRAZOLE 40 MG/10 ML (PROTONIX) VIAL IV SCH (08:31)
[2017-04-27] MEDS ORDERED: LIDOCAINE JELLY 2% (XYLOCAINE) 5 ML TUBE ONE (09:20)
[2017-04-27] MEDS ORDERED: MIDAZOLAM 2 MG/2 ML (VERSED) VIAL ONE ×4 (09:20→09:21)
[2017-04-27] MEDS ORDERED: fentaNYL INJECTION 100 MCG/2 ML AMP ONE (09:20)
[2017-04-27] MEDS ORDERED: HURRICAINE EXT TUBE (BENZOCAINE) ONE (09:21)
[2017-04-27] MEDS ORDERED: NS IV 500 ML 500 ML ONE (09:39)
[2017-04-27] MEDS ORDERED: NS IV 500 ML 500 ML IV PRN (09:45)
--- NOTE | 2017-04-27 09:46 | Conscious Sedation/ASA ---
Conscious Sedation Pre-Proced Time Reviewed: 09:00 ASA Class: 2 Airway Mallampati Classification: ([place] appropriate class) I. II. III, IV Lungs Heart ASA score ASA 1: a normal healthy patient ASA 2: a patient with a mild systemic disease (mid diabetes, controlled hypertension, obesity ASA 3: a patient with a severe systemic disease that limits activity (angina , COPD, prior Myocardial infarction) ASA 4: a patient with an incapacitating disease that is a constant threat to life (CHF, renal failure) ASA 5: a moribund patient not expected to survive 24 hrs. (ruptured aneurysm) ASA 6: a declared brain patient whose organs are being harvested. For emergent operations, add the letter E after the classification Grade 2 Sedation Plan: Analgesia, Amnesia, Plan communicated to team members, Discussed options with patient/fam, Discussed risks with patient/fam Note The patient is an appropriate candidate to undergo the planned procedure, sedation, and anesthesia. The patient immediately re-assessed prior to indication. DAVID WATSON MD Apr 27, 2017 9:46 am
--- NOTE | 2017-04-27 09:47 | Progress Note-Pre Operative ---
Pre-Operative Progress Note H&P Reviewed The H&P was reviewed, patient examined and no changes noted. Date Seen by Provider: Apr 27, 2017 Time Seen by Provider: 09:00 Date H&P Reviewed: Apr 27, 2017 Time H&P Reviewed: 09:00 Pre-Operative Diagnosis: dysphagia, esoph FB, GERD DAVID WATSON MD Apr 27, 2017 9:47 am
[2017-04-27] MEDS: fentaNYL INJECTION 100 MCG/2 ML AMP IVP PRN ×2 (09:55→10:15)
[2017-04-27] MEDS ORDERED: HURRICAINE EXT TUBE (BENZOCAINE) XX PRN (10:00)
[2017-04-27] MEDS ORDERED: LIDOCAINE JELLY 2% (XYLOCAINE) 5 ML TUBE MM PRN (10:00)
[2017-04-27] MEDS ORDERED: ONDANSETRON 4 MG/2 ML (SDV) Z0FRAN ONE (10:03)
[2017-04-27] MEDS: MIDAZOLAM 2 MG/2 ML (VERSED) VIAL IVP PRN ×4 (10:17→10:25)
--- NOTE | 2017-04-27 11:11 | Progress Note-Post Operative ---
Post-Operative Progess Note Surgeon (s)/Bevel Mill Operator (s) Surgeon DAVID WATSON MD Bevel Mill Operator: none Pre-Operative Diagnosis dysphagia, esoph FB, GERD Post-Operative Diagnosis reflux esophagitis(class C), distal esophageal stricture, small HH(2cm), moderate gastritis. Procedure & Operative Findings Date of Procedure 04/27/17 Procedure Performed/Findings EGD with bx and balloon dilatation. Anesthesia Type CS Estimated Blood Loss Estimated blood loss (mL): minimal Specimens/Packing Specimens Removed GE jxn, antrum DAVID WATSON MD Apr 27, 2017 11:11 am
[2017-04-27] MEDS ORDERED: DOCU100C37 PO (11:47)
[2017-04-27] MEDS ORDERED: FAMO-119 PO (11:47)
[2017-04-27 12:00] VITALS: BP 105/72
--- NOTE | 2017-04-27 12:42 | OPERATIVE REPORT ---
DATE OF SERVICE: 04/26/2017 ATTENDING PRIMARY CARE PHYSICIAN: Dr. Ashley Rutherford PREOPERATIVE DIAGNOSES: Dysphagia, esophageal foreign body, history of gastroesophageal reflux disease. History of stricture. POSTOPERATIVE DIAGNOSES: Distal esophageal stricture and Schatzki's ring identified. Small hiatal hernia, 1.5 to 2 cm in size; moderate severity gastritis. PROCEDURE: Esophagogastroduodenoscopy with biopsy and dilatation. SURGEON: David Waston MD ANESTHESIA: Conscious sedation. ESTIMATED BLOOD LOSS: Minimal. FINDINGS: Distal esophageal stricture and Schatzki's ring, small hiatal hernia approximately 1.5 to 2 cm in size, moderate severity gastritis. Pylorus and duodenum appeared normal with no distal obstructions. DISPOSITION: The patient tolerated the procedure well. INDICATIONS: The patient is a 42-year-old female with recurrent issues with gastroesophageal reflux disease as well as dysphagia. She has had esophageal strictures before in the past and has had multiple dilatations. The last one was done in 2015. At that time, a distal esophageal stricture and Schatzki's ring identified as well as a small hiatal hernia as well as the moderate gastritis. Biopsies were negative for H. pylori as well as negative for Jacob's esophagus. She presented with 1 day episode of dysphagia after taking in a food bolus and felt immediate substernal pressure sensation as well as regurgitation, inability to swallow any liquids or solids. DESCRIPTION OF PROCEDURE: The patient was brought to the endoscopy suite, laid in the left lateral decubitus position. After adequate IV pain and sedative medications and conscious sedation anesthesia, the mouthpiece was applied. The endoscope was placed in the mouth, visualizing the pharynx and hypopharyngeal region. Vocal cords, epiglottis and vallecula identified and appeared to be normal. The endoscope was then gently intubated at the esophageal opening, esophagus was insufflated. The endoscope was then advanced to the first, second and third portions of the esophagus. At the level of the GE junction, no foreign body was identified; however, there was significant reflux esophagitis class C as well as a Schatzki's ring and distal esophageal stricture identified. A biopsy was taken of this using forceps. The endoscope was then advanced into the stomach, the endoscope retroflexed again visualizing the Schatzki's ring and distal esophageal stricture as well as a small hiatal hernia approximately 1.5 to 2 cm in size. A moderate severity gastritis was noted. There were no ulcers, polyps or any neoplasms identified. A biopsy was taken of the stomach antrum with forceps with visualization of good hemostasis. The endoscope was then advanced through the pylorus into the first and second portions of the duodenum, which appeared normal and no distal obstructions. We then proceeded with the dilatation of the esophageal stricture. A CRE fixed guidewire balloon was then placed into the stomach and pulled back to the level of the GE junction and the stricture. We first proceeded with 3 atmospheres of pressure or 18 mm in diameter with mild resistance. We then proceeded to 4.5 atmospheres of pressure or 19 mm in diameter, again with mild resistance. We then went to 6 atmospheres of pressure or 20 mm in diameter with [id number] resistance and left this in place for 60 seconds. The balloon was then desufflated and removed. There were no mucosal tears or any bleeding identified. The endoscope was slowly withdrawn while taking a second look and suctioning of residual air with no additional findings. The patient tolerated the procedure well. We will start her back on a proton pump inhibitor. We will start her on Protonix 40 mg daily and have her undergo the necessary lifestyle and diet accommodation including small and more frequent meals, avoidance of eating at night as well as head elevation while lying supine. She also needs to avoid caffeinated beverages, spicy, greasy and acidic foods. We will have her follow up in the office for follow up on this issue as well as to follow up on a symptomatic thyroid nodule. Job ID: [id number] DocumentID: [id number] Dictated Date: 04/27/2017 10:45:12 Data Entry Date: 04/27/2017 11:55:00 Dictated By: DAVID WATSON MD
[2017-04-27] MEDS ORDERED: PANT40TA2 PO (12:46)
--- NOTE | 2017-04-27 12:49 | Discharge Inst-Surgical ---
D/C Lap Instructions-WALTER New, Converted, or Re-Newed RX: RX on Chart Follow Up Appt in 4 weeks Activity as tolerated High Fiber Diet 25g or more per day Avoid Alcohol, Caffeine, Spicy [place] and Acid foods. Drink 64 fluid oz or more of fluids per day. Symptoms to Report: Fever over 101 degree F, Nausea/Vomiting If any problems/questions: Contact your physician or go to Emergency Room DAVID WATSON MD Apr 27, 2017 12:49 pm
--- NOTE | 2017-04-28 06:02 | HISTORY AND PHYSICAL ---
DATE OF SERVICE: 04/26/2017 ATTENDING PRIMARY CARE PHYSICIAN: Dr. Ashley Rutherford HISTORY OF PRESENT ILLNESS: The patient is a 42-year-old female, known to us. She has a longstanding history of gastroesophageal reflux disease as well as previous EGDs and found to have a reflux esophagitis class C as well as a distal esophageal stricture. On 05/01/2016, she underwent an EGD and again found to have a reflux esophagitis as well as a mild distal esophageal stricture and Schatzki's ring as well as a hiatal hernia approximately 2 cm in size. A [id number] gastritis was also identified. She underwent an EGD with biopsy and dilatation. The biopsies of the stomach were negative for H. pylori and biopsies of the gastroesophageal junction were negative for Jacob's esophagus. She presented yesterday with dysphagia. She took in homemade noodles and then felt substernal chest pressure and tried to swallow liquids; however, would feel more pressure and would regurgitate the food. She states that this sensation did not resolve overtime. She waited for a few more hours; however, this could not reduce on its own. This is consistent with an esophageal foreign body and recurrent stricture. PAST MEDICAL HISTORY: Gastroesophageal reflux disease, hyperlipidemia, asthma, seasonal allergies. PAST SURGICAL HISTORY: section 1997, 2007, partial hysterectomy 2011, cholecystectomy 1999, left oophorectomy, appendectomy and cystectomy 1992, tonsils and adenoidectomy 1978, D and C 2003. ALLERGIES: PENICILLIN, MORPHINE, SULFA, PINEAPPLE. MEDICATIONS: Dexilant 60 mg daily, aspirin 81 mg daily, Pepcid 20 mg b.i.d., Carafate p.r.n., tramadol p.r.n., nitroglycerin p.r.n. SOCIAL HISTORY: Negative smoke. Rare alcohol. FAMILY HISTORY: Mother breast cancer, diabetes, DVT. Father oropharyngeal and liver cancer, diabetes. VITAL SIGNS: Temperature 97.3, blood pressure 103/71, pulse 65, respirations 16, pulse ox 97% on room air. REVIEW OF SYSTEMS: This is a well-nourished female, currently in no acute distress. She states that the chest-substernal pressure sensation reduced on its own early this morning and has been able to swallow her saliva without any difficulty. She does not report any chest pain, palpitations, diaphoresis. No nausea, vomiting, no hematemesis or coffee-ground emesis. No diarrhea, constipation, no red blood per rectum, no dark tarry stools. No fever, chills, no recent inadvertent weight loss. PHYSICAL EXAMINATION: CHEST: Clear. Good breath sounds bilaterally. HEART: Regular. No murmurs. HEENT: No scleral icterus, no cervical lymphadenopathy. ABDOMEN: Soft, nontender, nondistended. SKIN: Warm and dry. ASSESSMENT AND PLAN: A 42-year-old female with symptomatic recurrent distal esophageal stricture and history of gastroesophageal reflux disease as well as recent history of esophageal foreign body. We will proceed with EGD, biopsies as well as dilatation. Job ID: [id number] DocumentID: [id number] Dictated Date: 04/27/2017 09:26:29 Duster Tender Date: 04/27/2017 10:24:50 Dictated By: DAVID WATSON MD [facility]
== END 2017-04-27 13:20 | disposition home or self-care (01) ==
LOC: EDUNIT# 17:27 → ER 17:29 → 4TH 19:40 → UNDOADMOB 19:40 → 4TH 19:40 → SDC 19:40 → UNDODISOB 04-27 13:20
PROVIDERS: ATTEND Surgery
DX: K21.0 Gastro-esophageal reflux disease with esophagitis (principal); K22.2 Esophageal obstruction; K44.9 Diaphragmatic hernia without obstruction or gangrene; K29.70 Gastritis, unspecified, without bleeding; E78.5 Hyperlipidemia, unspecified; J45.909 Unspecified asthma, uncomplicated; Z79.82 Long term (current) use of aspirin; Z79.899 Other long term (current) drug therapy
CPT/HCPCS: 36415; 74022; 74177; 80053; 83690; 85025

== ENCOUNTER → 2017-09-05 | Outpatient (CLI) | payer BC ==
[~2017-09-05] MED LIST changes: +DOCU100C37 PO; +PANT40TA2 PO
--- NOTE | 2017-09-05 12:32 | Diagnostic Imaging Report ---
Indication: Routine screening. Comparison is made with prior study from 04/26/2016 and 04/25/2015. 2-D and 3-D bilateral screening mammography was performed with CAD. Findings: Scattered fibroglandular densities are identified bilaterally. The parenchymal pattern is stable. No dominant mass or malignant-appearing microcalcifications are seen. The axillae are unremarkable. Impression: BI-RADS category 1. No mammographic features suspicious for malignancy are identified. ACR BI-RADS Category 1: Negative. Result letter will be mailed to the patient. Note: At least 10% of breast cancer is not imaged by mammography. Dictated by: Dictated on workstation # [id number]
== END ==
LOC: RAD 08:13
PROVIDERS: ATTEND Obstetrics & Gynecology
DX: Z12.31 Encounter for screening mammogram for malignant neoplasm of breast (principal); Z80.3 Family history of malignant neoplasm of breast
CPT/HCPCS: 77067

== ENCOUNTER 2018-01-19 08:14 | Outpatient (RCR) | payer BC | END 2018-02-01 | disposition home or self-care (01) | LOC: CARD 08:14 | PROVIDERS: ATTEND Physician Assistant | DX: R07.9 Chest pain, unspecified (principal); I10 Essential (primary) hypertension; R00.2 Palpitations; E78.5 Hyperlipidemia, unspecified | CPT/HCPCS: 93225; 93226 ==

== ENCOUNTER → 2018-11-25 | Outpatient (CLI) | payer BC ==
--- NOTE | 2018-11-25 18:06 | Diagnostic Imaging Report ---
EXAMINATION: Digital mammogram bilateral screening. The current study was also evaluated with a Computer Aided Detection (CAD) system. 3-D tomosynthesis was also performed and reviewed. INDICATION: Screening. This study was compared to the prior exams of 09/05/2017, 04/26/2016, and 04/25/2015. At this time, there are no current complaints. FINDINGS: The fibroglandular tissue in both breasts is heterogeneously dense. This does limit the sensitivity of this exam. Overall, there does not appear to have been any significant change when compared to the prior study. No primary or secondary sign of malignancy is noted. 3D tomographic images fail to show any sign of malignancy. IMPRESSION: There is no radiographic evidence for malignancy. ACR BI-RADS Category 1: Negative. Result letter will be mailed to the patient. Note: At least 10% of breast cancer is not imaged by mammography. Dictated by: Dictated on workstation # [id number]
== END ==
LOC: RAD 07:30
PROVIDERS: ATTEND Obstetrics & Gynecology
DX: Z12.31 Encounter for screening mammogram for malignant neoplasm of breast (principal)
CPT/HCPCS: 77067

== ENCOUNTER → 2021-01-17 | Outpatient (CLI) | payer OTHER ==
--- NOTE | 2021-01-17 09:19 | Diagnostic Imaging Report ---
INDICATION: Ongoing pain following work injury. Painful ROM. TECHNIQUE: AP pelvis at 8:51 AM. CORRELATION STUDY: None. FINDINGS: The pelvis demonstrates no evidence for acute fracture. The pectineal lines and obturator rings are maintained. Spina bifida occulta defect at the S1 level. Mild sclerosis of the bilateral SI joints. Presumably tubal closure device in the bilateral hemipelves. Phlebolith vascular calcifications. Pubic symphysis is unremarkable. Hips unremarkable. IMPRESSION: Negative examination of the pelvis. Dictated by: Dictated on workstation # [id number]
--- NOTE | 2021-01-17 09:21 | Diagnostic Imaging Report ---
INDICATION: Ongoing pain following work injury. Painful ROM. TECHNIQUE: AP, lateral, and spot imaging of the lumbar spine. CORRELATION STUDY: None. FINDINGS: Mild rightward curvature is present, apex L2-L3. Alignment is otherwise anatomic. Lumbar vertebral body heights are maintained. Mild to moderate asymmetric disc space narrowing at L5-S1. Mild sclerosis of the SI joints. Presumably cholecystectomy clips in the right upper quadrant. IMPRESSION: Mild rightward curvature of the lumbar spine. Mild degenerative changes at the L5-S1 level. Negative for acute bony abnormality. Dictated by: Dictated on workstation # [id number]
== END ==
LOC: RAD 08:16
PROVIDERS: ATTEND Chiropractor
DX: M47.817 Spondylosis without myelopathy or radiculopathy, lumbosacral region (principal)
CPT/HCPCS: 72100; 72170

== ENCOUNTER → 2021-01-23 | Outpatient (CLI) | payer BC ==
--- NOTE | 2021-01-23 10:10 | Diagnostic Imaging Report ---
Indication: Screening. The current study was also evaluated with a Computer Aided Detection (CAD) system. 3-D Tomographic imaging was also performed. Comparison made with prior examination from 11/25/2018, 09/05/2017 and 04/26/2016. FINDINGS: There are scattered fibroglandular densities. There are a few benign type calcifications. There is no dominant mass, spiculated lesion or suspicious calcification identified. Skin, nipples and axilla are unremarkable. IMPRESSION: Category 2 benign findings. ACR BI-RADS Category 2: Benign findings. Result letter will be mailed to the patient. Note: At least 10% of breast cancer is not imaged by mammography. Dictated by: Dictated on workstation # [id number]
== END ==
LOC: RAD 08:00
PROVIDERS: ATTEND Obstetrics & Gynecology
DX: Z12.31 Encounter for screening mammogram for malignant neoplasm of breast (principal)
CPT/HCPCS: 77063; 77067

== ENCOUNTER → 2022-05-10 | Outpatient (CLI) | payer BC ==
[~2022-05-10] MED LIST changes: +MOME17SP11 NS; -MOME17SP9 NS
--- NOTE | 2022-05-10 12:08 | Diagnostic Imaging Report ---
INDICATION: Routine screening. Comparison is made with prior mammogram of 01/23/2021 and 11/25/2018. 2-D and 3-D bilateral screening mammography was performed with CAD. Both breasts are heterogeneously dense, limiting the sensitivity of mammography. No spiculated mass or malignant-appearing microcalcifications are seen. There is a intraparenchymal lymph node in the upper outer left breast. Axillae are unremarkable. IMPRESSION: No mammographic features suspicious for malignancy are identified. ACR BI-RADS Category 2: Benign findings. Result letter will be mailed to the patient. Note: At least 10% of breast cancer is not imaged by mammography. BI-RADS Category 2 Dictated by: Dictated on workstation # [id number]
== END ==
LOC: RAD 07:46
PROVIDERS: ATTEND Nurse Practitioner Women's Health
DX: Z12.31 Encounter for screening mammogram for malignant neoplasm of breast (principal)
CPT/HCPCS: 77063; 77067

== ENCOUNTER → 2022-09-03 | Outpatient (CLI) | payer BC ==
[~2022-09-03] MED LIST changes: +MONT-47 PO; -MONT10TA21 PO
--- NOTE | 2022-09-03 19:35 | Diagnostic Imaging Report ---
PROCEDURE: US Thyroid. TECHNIQUE: Multiple real-time grayscale images were obtained of the thyroid in various projections. INDICATION: Thyroid nodules. COMPARISON: Exam compared with study of 03/25/2017. FINDINGS: Thyroid is enlarged and somewhat heterogeneous in echotexture with the right lobe measuring 5.3 x 1.5 x 1.8 cm with unremarkable color Doppler blood flow. A lower pole right lobe thyroid nodule has mixed solid and cystic components with its solid elements hyperechoic as well as a 7 mm hypoechoic upper pole nodule. The left lobe measures 5.0 x 1.5 x 1.5 cm with normal color Doppler blood flow and contains a mixed solid and cystic echogenic mass at 1.1 cm. No substantial change from prior. IMPRESSION: Mild heterogeneous thyromegaly with small benign stable nodules. No dominant or suspicious mass. Dictated by: Dictated on workstation # [id number]
== END ==
LOC: RAD 08:30
PROVIDERS: ATTEND Family Medicine
DX: E01.0 Iodine-deficiency related diffuse (endemic) goiter (principal)
CPT/HCPCS: 76536

== ENCOUNTER → 2022-10-29 | Outpatient (CLI) | payer BC ==
--- NOTE | 2022-10-29 14:23 | Diagnostic Imaging Report ---
PROCEDURE: US Non-ob pelvis comp/trans. TECHNIQUE: Multiple realtime grayscale images were obtained of the pelvis in various projections endovaginally. Transabdominal imaging was also performed. INDICATION: Pelvic pain Uterus is surgically absent. Right ovary is present and appears normal. Left ovary appears to be surgically absent. There is no free fluid. IMPRESSION: Surgically absent uterus and left ovary. Right ovary appear normal. There are no pathologic masses or fluid collections seen. Dictated by: Dictated on workstation # [id number]
== END ==
LOC: RAD 09:35
PROVIDERS: ATTEND Nurse Practitioner Women's Health
DX: R10.9 Unspecified abdominal pain (principal); Z90.721 Acquired absence of ovaries, unilateral; Z90.710 Acquired absence of both cervix and uterus
CPT/HCPCS: 76830; 76856